=== PATIENT | male | born 1980 | race Caucasian/White ===

== ENCOUNTER 2017-04-26 15:54 | Emergency (ER) | payer SELFPAY ==
[2017-04-26] MEDS ORDERED: Ketorolac Tromethamine 60 MG/2 ML VIAL ONE (16:14)
[2017-04-26] MEDS ORDERED: Ondansetron ODT 4 MG TAB ONE (16:51)
--- NOTE | 2017-04-26 20:31 | RAD ---
CHEST TWO VIEWS 04/26/17 The heart is normal in size. There is no mediastinal widening or shift. The lungs are fully inflated and clear. No fractures were detected. The trachea is midline. IMPRESSION: No acute thoracic findings. POS: HOME
--- NOTE | 2017-04-26 20:32 | RAD ---
RIGHT SHOULDER THREE VIEWS 04/26/17 No fracture, dislocation, or AC joint widening was seen. The glenohumeral joint appears normal. The visible adjacent ribs showed no fracture. IMPRESSION: No acute finding. POS: HOME
== END 2017-04-26 17:09 | disposition home or self-care (01) ==
LOC: BURERS 15:54
DX: S43.401A Unspecified sprain of right shoulder joint, initial encounter (principal); F20.9 Schizophrenia, unspecified; F31.9 Bipolar disorder, unspecified; V19.9XXA Pedal cyclist (driver) (passenger) injured in unspecified traffic accident, initial encounter
CPT/HCPCS: 71020; 93005; 96372; J1885; Q0162